=== PATIENT | female | born 1970 | race African-American/Black ===

== ENCOUNTER → 2018-01-28 | Outpatient (CLI) | payer BC ==
[~2018-01-28] MED LIST: ALBUTEROL SULFATE 0.083% NEB 2.5 MG/3 ML AMPUL NEB ONE
--- NOTE | 2018-01-29 10:27 | PULMONARY FUNCTION TEST ---
DATE OF SERVICE: 01/28/2018 THE VITAL CAPACITY IS SLIGHTLY DECREASED. THE EXPIRATORY FLOW RATES ARE MODERATELY DECREASED. THE FEV1/VC IS 72%, PREDICTED: 83% LUNG VOLUMES BY NITROGEN WASH OUT METHOD SHOW: TLC IS 72% OF PREDICTED FRC IS 82% OF PREDICTED RV IS 65% OF PREDICTED THE DLCO IS 16.1, 69% OF PREDICTED. THE RV/TLC RATIO IS 29% PREDICTED 33% AFTER BRONCHODILATOR, EXPIRATORY FLOW RATES SHOW NO SIGNIFICANT CHANGE. IMPRESSION: GOOD PATIENT EFFORT. SLIGHT RESTRICTIVE AND SLIGHT OBSTRUCTIVE DEFECTS. LUNG VOLUMES ARE SLIGHTLY DECREASED DIFFUSING CAPACITY IS SLIGHTLY DECREASED. CC: EVELYNE HONEYCUTT MD > ZOHREH
== END ==
LOC: RT 10:48
PROVIDERS: ATTEND Family Medicine Geriatric Medicine
DX: R06.02 Shortness of breath (principal); F17.200 Nicotine dependence, unspecified, uncomplicated
CPT/HCPCS: 94060; 94727; 94729; 94760

== ENCOUNTER → 2018-01-29 | Outpatient (CLI) | payer BC ==
--- NOTE | 2018-01-29 19:59 | XCELERA REPORT ---
[address] [address] Transthoracic Echocardiogram Report Name: KALI NGUYỄN Age: 48 yrs Gender: Female : 1970 Patient Status: Outpatient Patient Location: Study Date: 01/29/2018 11:29 AM Height: 66 in Weight: 157 lb BSA: 1.8 m2 Reason For Study: SOB Ordering Physician: EVELYNE HONEYCUTT Performed By: Aryan Rosales Interpretation Summary LVEF is normal, and no evidence of LV diastolic dysfunction, hypokin basal IVS, and inferior wall, no LV enlargement. TV poorly seen no TR to derive RVSP., unable to r/o pulm hypertension. No MVP, no MR, no MS, no LA enlaargement. AV poorly visualise, no evidence of and no AR MMode/2D Measurements & Calculations RVDd: 2.6 cm LVIDd: 4.3 cm FS: 36.4 % Ao root diam: 2.5 cm IVSd: 0.91 cm LVIDs: 2.7 cm EDV(Teich): 83.6 ml LVPWd: 0.76 cm ESV(Teich): 28.0 ml Ao root area: 4.8 cm2 EF(Teich): 66.5 % LA dimension: 2.8 cm Doppler Measurements & Calculations MV E max rambo: MV P1/2t max rambo: Ao V2 max: LV V1 max P.7 cm/sec 103.7 cm/sec 114.0 cm/sec 3.0 mmHg MV A max rambo: MV P1/2t: 69.1 msec Ao max PG: LV V1 max: 69.6 cm/sec 5.2 mmHg 86.7 cm/sec MV E/A: 1.5 MVA(P1/2t): 3.2 cm2 MV dec slope: 439.7 cm/sec2 PA V2 max: 99.7 cm/sec PA max P.0 mmHg Left Ventricle The left ventricle is grossly normal size. There is normal left ventricular wall thickness. The left ventricular ejection fraction is normal. Doppler measurements suggest normal left ventricular diastolic function. There is proximal septal wall mild hypokinesis. There is inferior wall moderate hypokinesis. There is no thrombus. Right Ventricle The right ventricle is not well visualized secondary to technical limitations. Atria The right atrium is normal in size. The left atrial size is normal. The interatrial septum is intact with no evidence for an atrial septal defect. Mitral Valve There is mild mitral annular calcification. There is no evidence of mitral valve prolapse. There is no mitral valve stenosis. There is no mitral regurgitation noted. Aortic Valve The aortic valve is normal in structure and functions normally. The aortic valve is not well visualized secondary to technical limitations. There is no aortic valvular vegetation. There is no aortic valve stenosis. No aortic regurgitation is present. Tricuspid Valve The tricuspid is normal in structure and function. No tricuspid regurgitation. Pulmonic Valve There is no pulmonic valvular regurgitation. Great Vessels The aortic root is normal size. Effusions There is no pericardial effusion. I WMSI = 1.36 % Normal = 64 Segments Size X - Cannot 1 - Normal 2 - 3 - Akinetic4 - 1-2 small Interpret Hypokinetic Dyskinetic 3-5 moderate 5 - 6-14 large Aneurysmal 15-16 diffuse : EVELYNE HONEYCUTT > Casey David
== END ==
LOC: SP 10:41
PROVIDERS: ATTEND Family Medicine Geriatric Medicine
DX: R06.02 Shortness of breath (principal)
CPT/HCPCS: 93306

== ENCOUNTER → 2018-02-10 | Outpatient (CLI) | payer BC ==
--- NOTE | 2018-02-10 08:36 | RADIOLOGY REPORT (SQ) ---
EXAM DESCRIPTION: CHEST PA/LATERAL COMPLETED DATE/TIME: 02/10/2018 8:25 am REASON FOR STUDY: SHORTNESS OF BREATH, PAIN IN RT HIP,PAIN IN LT HIP COMPARISON: Two-view chest 05/16/2014 EXAM PARAMETERS: NUMBER OF VIEWS: two views TECHNIQUE: Digital Frontal and Lateral radiographic views of the chest acquired. RADIATION DOSE: NA LIMITATIONS: none FINDINGS: LUNGS AND PLEURA: No opacities, masses or pneumothorax. No pleural effusion. MEDIASTINUM AND HILAR STRUCTURES: No masses or contour abnormalities. HEART AND VASCULAR STRUCTURES: Heart normal size. No evidence for failure. BONES: No acute findings. HARDWARE: None in the chest. OTHER: No other significant finding. IMPRESSION: NO SIGNIFICANT RADIOGRAPHIC FINDING IN THE CHEST. TECHNICAL DOCUMENTATION: JOB ID: [id number] [employer]- All Rights Reserved Reading location - IP/workstation name: [email or web address]
--- NOTE | 2018-02-10 08:36 | RADIOLOGY REPORT (SQ) ---
EXAM DESCRIPTION: HIPS BILATERAL COMPLETED DATE/TIME: 02/10/2018 8:25 am REASON FOR STUDY: SHORTNESS OF BREATH, PAIN IN RT HIP,PAIN IN LT HIP R06.02 SHORTNESS OF BREATH M25 .551 PAIN IN RIGHT HIP M25.552 PAIN IN LEFT HIP COMPARISON: None. NUMBER OF VIEWS: Two views TECHNIQUE: AP pelvis and additional frog-leg view of both hips. LIMITATIONS: None. FINDINGS: MINERALIZATION: Normal. HIPS: No acute fracture or dislocation. No worrisome bone lesions. PELVIS AND SACRUM: No acute fracture or dislocation. No worrisome bone lesions. PUBIS AND ISCHIUM: No acute fracture. LOWER LUMBAR SPINE: No significant findings as visualized. SOFT TISSUES: No findings. OTHER: No other significant finding. IMPRESSION: NEGATIVE STUDY OF THE PELVIS AND HIPS. TECHNICAL DOCUMENTATION: JOB ID: [id number] [employer]- All Rights Reserved Reading location - IP/workstation name: [facility]
[2018-02-10 09:25] LABS: ABSOLUTE EOSINOPHILS # (AUTO) 0.2 10^3/uL (0.0-0.6); ABSOLUTE LYMPHOCYTES (AUTO) 1.8 10^3/uL (0.5-4.7); ABSOLUTE MONOCYTES (AUTO) 0.4 10^3/uL (0.1-1.4); ABSOLUTE NEUT (AUTO) 2.4 10^3/uL (1.7-8.2); BASOPHILS % (AUTO) 0.3 % (0-2); EOSINOPHILS % (AUTO) 4.2 % (0-6); HEMATOCRIT 41.8 % (36.0-47.0); HEMOGLOBIN 13.9 g/dL (12.0-15.5); LYMPHOCYTES % (AUTO) 37.8 % (13-45); MEAN CORPUSCULAR HEMOGLOBIN 30.4 pg (27.0-33.4); MEAN CORPUSCULAR HGB CONC 33.4 g/dL (32.0-36.0); MEAN CORPUSCULAR VOLUME 91 fl (80-97); MONOCYTES % (AUTO) 7.4 % (3-13); PLATELET COUNT 189 10^3/uL (150-450); RED BLOOD COUNT 4.58 10^6/uL (3.72-5.28); RED CELL DISTRIBUTION WIDTH 13.1 % (11.5-14.0); SEGMENTED NEUTROPHILS % (AUTO) 50.3 % (42-78); TOTAL CELLS COUNTED % (AUTO) 100 %; WHITE BLOOD COUNT 4.9 10^3/uL (4.0-10.5)
[2018-02-10 09:46] LABS: ALANINE AMINOTRANSFERASE 29 U/L (9-52); ALBUMIN 4.2 g/dL (3.5-5.0); ALKALINE PHOSPHATASE 57 U/L (38-126); ANION GAP 15 (5-19); ASPARTATE AMINO TRANSFERASE 18 U/L (14-36); BILIRUBIN,DIRECT 0.3 mg/dL (0.0-0.4); BILIRUBIN,TOTAL 0.5 mg/dL (0.2-1.3); BLOOD UREA NITROGEN 10 mg/dL (7-20); CALCIUM 9.5 mg/dL (8.4-10.2); CARBON DIOXIDE 29 mmol/L (22-30); CHLORIDE 102 mmol/L (98-107); CHOLESTEROL 218.06 mg/dL (0-200); GLUCOSE 89 mg/dL (75-110); POTASSIUM 4.4 mmol/L (3.6-5.0); SODIUM 145.7 mmol/L (137-145); TOTAL PROTEIN 7.1 g/dL (6.3-8.2); TRIGLYCERIDES 97 mg/dL (<150); URIC ACID 3.9 mg/dL (2.5-7.5)
[2018-02-10 09:56] LABS: DIRECT LDL 138 mg/dL (<100)
== END ==
LOC: OD 08:11
PROVIDERS: ATTEND Family Medicine Geriatric Medicine
DX: E66.3 Overweight (principal); R06.02 Shortness of breath; M25.551 Pain in right hip; M25.552 Pain in left hip
CPT/HCPCS: 36415; 71046; 73522; 80053; 80061; 84443; 84550; 85025